=== PATIENT | female | born 1970 | race Caucasian/White ===

== ENCOUNTER 2023-12-16 18:09 | Inpatient (IN) | payer BC ==
--- NOTE | 2023-12-16 18:19 | ED ---
Wound/Laceration HPI - General Source: patient, RN notes reviewed Mode of arrival: ambulatory Limitations: no limitations <Saranya Fernández - Last Filed: 12/16/23 18:18> - General Source: RN notes reviewed, old records reviewed Mode of arrival: ambulatory Limitations: no limitations - History of Present Illness -: days(s) Extremity Location: Right: Foot Place: home Patient Tetanus UTD: Yes Context: accidental Associated Symptoms: none Treatments Prior to Arrival: bandage, other (Antibiotics) <Reji Dunbar - Last Filed: 12/16/23 23:16> - General Chief Complaint: Wound/Laceration Stated Complaint: R Foot Wound-sent by Dr Tiera Seen by Provider: 12/16/23 18:18 - History of Present Illness Initial Comments: Quick note: 53-year-old female presented to the ER with a chief complaint of right foot wound. She states been there for about 9 days. Was seen at [facility] and received IV antibiotics and discharged with oral. Was seen by electrical parts reconditioner today and sent to the ER for further evaluation. Patient denies any fevers but does endorse recent chills. Patient is diabetic and has history of t oe amputations. (Saranya Fernández) This is a 53-year-old female to the ER today. [facility] right foot wound. Patient was recently on antibiotics with both inpatient evaluation at [facility] as well as seen by her electrical parts reconditioner. Patient was sent to the ER by her electrical parts reconditioner for inpatient IV antibiotics (Reji Dunbar) - Related Data Allergies Allergy/AdvReac Type Severity Reaction Status Date / Time metformin Allergy Nausea & Verified 12/16/23 18:18 Vomiting & Diarrhea rubelsus Allergy Nausea & Uncoded 12/16/23 18:18 Vomiting & Diarrhea Review of Systems ROS Other: All systems not noted in ROS Statement are negative. <Saranya Fernández - Last Filed: 12/16/23 18:18> ROS Other: All systems not noted in ROS Statement are negative. <Reji Dunbar - Last Filed: 12/16/23 23:16> ROS Statement: Those systems with pertinent positive or pertinent negative responses have been documented in the HPI. Past Medical History Past Medical History: Diabetes Mellitus Additional Past Medical History / Comment(s): thyroid disorder-. eye issues due- DM. PCOS History of Any Multi-Drug Resistant Organisms: None Reported Additional Past Surgical History / Comment(s): lipoma- right abdomen. 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 Past Psychological History: No Psychological Hx Reported Smoking Status: Never smoker Past Alcohol Use History: Occasional Past Drug Use History: None Reported <Saranya Fernández - Last Filed: 12/16/23 18:18> General Exam Limitations: no limitations <Saranya Fernández - Last Filed: 12/16/23 18:18> General appearance: alert, in no apparent distress Head exam: Present: atraumatic, normocephalic, normal inspection Eye exam: Present: normal appearance, PERRL, EOMI. Absent: scleral icterus, conjunctival injection, periorbital swelling ENT exam: Present: normal exam, mucous membranes moist Neck exam: Present: normal inspection. Absent: tenderness, meningismus, lymph adenopathy Respiratory exam: Present: normal lung sounds bilaterally. Absent: respiratory distress, wheezes, rales, rhonchi, stridor Cardiovascular Exam: Present: regular rate, normal rhythm, normal heart sounds. Absent: systolic murmur, diastolic murmur, rubs, gallop, clicks GI/Abdominal exam: Present: soft, normal bowel sounds. Absent: distended, tenderness, guarding, rebound, rigid Extremities exam: Present: normal inspection, full ROM, normal capillary refill. Absent: tenderness, pedal edema, joint swelling, calf tenderness Back exam: Present: normal inspection Neurological exam: Present: alert, oriented X3, CN II-XII intact Psychiatric exam: Present: normal affect, normal mood Skin exam: Present: warm, dry, intact, normal color. Absent: rash <Reji Dunbar - Last Filed: 12/16/23 23:16> - General Exam Comments Initial Comments: Visual Physical Exam Vital signs reviewed General: Well-appearing, nontoxic, no acute distress. Head: Normocephalic, atraumatic Eyes: PERRLA, EOMI ENT: Airway patent Chest: Nonlabored breathing Skin: No visual rash, normal skin tone Neuro: Alert and oriented 3 Musculoskeletal: No gross abnormalities (Saranya Fernández) Course <Reji Dunbar - Last Filed: 12/16/23 23:16> Vital Signs 12/16/23 18:11 Temperature 98.1 F Pulse Rate 76 Respiratory 16 Rate Blood Pressure 179/79 O2 Sat by Pulse 99 Oximetry - Reevaluation(s) Reevaluation #1: 12/16/23 23:14 Records reviewed (Reji Dunbar) Reevaluation #2: 12/16/23 23:15 Patient has no change in symptoms (Reji Dunbar) Reevaluation #3: 12/16/23 23:15 Patient informed of results questions answered (Reji Dunbar) Reevaluation #4: Was pt. sent in by a medical professional or institution (, SAL, FINE ARTS TEACHER, urgent care, hospital, or senior care...) When possible be specific @ -no Did you speak to anyone other than the patient for history (EMS, parent, family, police, friend...)? What history was obtained from this source @ -no Did you review nursing and triage notes (agree or disagree)? Why? @ -agree Are old charts reviewed (outside hosp., previous admission, EMS record, old EKG, old radiological studies, urgent care reports/EKG's, senior care records)? Report findings @ -yes Differential Diagnosis (chest pain, altered mental status, abdominal pain women, abdominal pain men, vaginal bleeding, weakness, fever, dyspnea, syncope, headache, dizziness, GI bleed, back pain, seizure, CVA, palpatations, mental health, musculoskeletal)? @ -prior EKG interpreted by me (3pts min.). @ -yes X-rays interpreted by me (1pt min.). @ -yes negative for acute disease CT interpreted by me (1pt min.). @ -no U/S interpreted by me (1pt. min.). @ -no What testing was considered but not performed or refused? (CT, X-rays, U/S, labs)? Why? @ -none What meds were considered but not given or refused? Why? @ -none Did you discuss the management of the patient with other professionals (professionals i.e. SAL Anderson, FINE ARTS TEACHER, lab, RT, psych nurse, outreach and education social worker, coin teller, teacher, inspectors and regulatory officers, watch caser)? Give summary @ -no Was smoking cessation discussed for >3mins.? @ -no Was critical care preformed (if so, how long)? @ -no Were there social determinants of health that impacted care today? How? (Homelessness, low income, unemployed, alcoholism, drug addiction, transportation, low edu. Level, literacy, decrease access to med. care, m[facility], rehab)? @ -none Was there de-escalation of care discussed even if they declined (Discuss DNR or withdrawal of care, Hospice)? DNR status @ -no What co-morbidities impacted this encounter? (DM, HTN, Smoking, COPD, CAD, Cancer, CVA, ARF, Chemo, Hep., AIDS, mental health diagnosis, sleep apnea, morbid obesity)? @ -none Was patient admitted / discharged? Hospital course, mention meds given and route, prescriptions, significant lab abnormalities, going to OR and other pertinent info. @ - Undiagnosed new problem with uncertain prognosis? @ -no Drug Therapy requiring intensive monitoring for toxicity (Heparin, Nitro, Insulin, Cardizem)? @ -no Were any procedures done? @ -no Diagnosis/symptom? @ - Acute, or Chronic, or Acute on Chronic? @ -Acute Uncomplicated (without systemic symptoms) or Complicated (systemic symptoms)? @ -Complicated Side effects of treatment? @ -no Exacerbation, Progression, or Severe Exacerbation? @ -exacerbation Poses a threat to life or bodily function? How? (Chest pain, [place], [place], pneumonia, PE, COPD, DKA, ARF, appy, cholecystitis, CVA, Diverticulitis, Homicidal, Suicidal, threat to staff... and all critical care pts) @ -yes (Reji Dunbar) - Consultations Consultation #1: Spoke with sound who agrees to admit this patient (Rjei Dunbar) Medical Decision Making <Saranya Fernández - Last Filed: 12/16/23 18:18> - Lab Data Result diagrams: 12/16/23 20:40 12/16/23 20:40 - Radiology Data Radiology results: report reviewed (X-ray foot negative for acute disease), image reviewed <Reji Dunbar - Last Filed: 12/16/23 23:16> - Medical Decision Making I performed the quick note portion of this chart. Electronically signed by Saranya Fernández PA-C (Saranya Fernández) 53 female to ER for evaluation patient [facility] for evaluation of recheck evaluation of right lower extremity right foot wound. Patient has significant wound and cellulitis nonhealing wound to the right foot with significant history of peripheral neuropathy and patient be admitted for IV antibiotics and wound care (Reji Dunbar) - Lab Data Lab Results 12/16/23 12/16/23 12/16/23 Range/Units 20:40 20:40 20:40 WBC 9.4 (3.8-10.6) k/uL RBC 3.89 (3.80-5.40) m/uL Hgb 11.6 (11.4-16.0) gm/dL Hct 35.7 (34.0-46.0) % MCV 91.8 (80.0-100.0) fL MCH 29.8 (25.0-35.0) pg MCHC 32.5 (31.0-37.0) g/dL RDW 13.4 (11.5-15.5) % Plt Count 288 (150-450) k/uL MPV 8.0 Neutrophils % 72 % Lymphocytes % 18 % Monocytes % 4 % Eosinophils % 4 % Basophils % 1 % Neutrophils # 6.8 (1.3-7.7) k/uL Lymphocytes # 1.7 (1.0-4.8) k/uL Monocytes # 0.4 (0-1.0) k/uL Eosinophils # 0.4 (0-0.7) k/uL Basophils # 0.1 (0-0.2) k/uL Sodium 139 (137-145) mmol/L Potassium 4.1 (3.5-5.1) mmol/L Chloride 108 H (98-107) mmol/L Carbon Dioxide 26 (22-30) mmol/L Anion Gap 5 mmol/L BUN 12 (7-17) mg/dL Creatinine 0.56 (0.52-1.04) mg/dL Est GFR (CKD-EPI)AfAm >90 (>60 ml/min/1.73 sqM) Est GFR (CKD-EPI)NonAf >90 (>60 ml/min/1.73 sqM) Glucose 123 H (74-99) mg/dL Plasma Lactic Acid Jalen 1.4 (0.7-2.0) mmol/L Calcium 8.9 (8.4-10.2) mg/dL Total Bilirubin 0.3 (0.2-1.3) mg/dL AST 44 H (14-36) U/L ALT 87 H (4-34) U/L Alkaline Phosphatase 169 H (38-126) U/L Total Protein 6.6 (6.3-8.2) g/dL Albumin 3.5 (3.5-5.0) g/dL Disposition <Saranya Fernández - Last Filed: 12/16/23 18:18> Is patient prescribed a controlled substance at d/c from ED?: No Time of Disposition: 22:00 <Reji Dunbar - Last Filed: 12/16/23 23:16> Clinical Impression: Laceration, Cellulitis of right foot, Peripheral neuropathy, Failure of outpatient treatment Disposition: ADMITTED IP TO THIS HOSP Condition: Good Referrals: Jose Luis Sanches DO [Primary Care Provider] - 1-2 days
--- NOTE | 2023-12-16 18:39 | XR ---
Right foot. HISTORY: Foot wound for 9 days. COMPARISON: None TECHNIQUE: 3 views right foot were obtained. FINDINGS: There is no fracture, dislocation, interosseous, intra-articular or soft tissue abnormality. There is a small plantar calcaneal spur. IMPRESSION: No significant abnormality seen.
[2023-12-16 21:03] LABS: Basophils # (A) 0.1 k/uL (0-0.2); Basophils % (A) 1 %; Eosinophils # (A) 0.4 k/uL (0-0.7); Eosinophils % (A) 4 %; HCT 35.7 % (34.0-46.0); HGB 11.6 gm/dL (11.4-16.0); Lymphocytes # (A) 1.7 k/uL (1.0-4.8); Lymphocytes % (A) 18 %; MCH 29.8 pg (25.0-35.0); MCHC 32.5 g/dL (31.0-37.0); MCV 91.8 fL (80.0-100.0); Monocytes # (A) 0.4 k/uL (0-1.0); Monocytes % (A) 4 %; Neutrophils # (A) 6.8 k/uL (1.3-7.7); Neutrophils % (A) 72 %; Platelet Count 288 k/uL (150-450); RBC 3.89 m/uL (3.80-5.40); RDW 13.4 % (11.5-15.5); WBC 9.4 k/uL (3.8-10.6)
[2023-12-16 21:14] LABS: ALT 87 U/L (4-34); AST 44 U/L (14-36); African American GFR (CKD) >90 (>60 ml/min/1.73 sqM); Albumin 3.5 g/dL (3.5-5.0); Alkaline Phosphatase 169 U/L (38-126); Anion Gap 5 mmol/L; Blood Urea Nitrogen 12 mg/dL (7-17); Calcium 8.9 mg/dL (8.4-10.2); Carbon Dioxide 26 mmol/L (22-30); Chloride 108 mmol/L (98-107); Glucose 123 mg/dL (74-99); Non-African American GFR(CKD) >90 (>60 ml/min/1.73 sqM); Potassium 4.1 mmol/L (3.5-5.1); Sodium 139 mmol/L (137-145); Total Bilirubin 0.3 mg/dL (0.2-1.3); Total Protein 6.6 g/dL (6.3-8.2)
[2023-12-16] MEDS ORDERED: ONDANSETRON 4 MG/2 ML VIAL IVP PRN (22:09)
[2023-12-16] MEDS ORDERED: MORPHINE SULFATE 4 MG/ML SYRINGE IV PRN (22:09)
[2023-12-16] MEDS ORDERED: NALOXONE 0.4 MG/ML 1 ML VIAL IV PRN (22:09)
[2023-12-16] MEDS ORDERED: VANCOMYCIN IV PER PHARMACY 1 EACH MISC MISCELLANE PRN (22:09)
[2023-12-17 00:05] LABS: C Reactive Protein 6.3 mg/dL (<1.0)
[2023-12-17] MEDS: SODIUM CHLORIDE 0.9% 1,000 ML IV SCH (00:22)
[2023-12-17] MEDS: VANCOMYCIN 2,000 MG in SODIUM CHLORIDE 0.9% 500 ML 500 ML IVPB ONE (01:33)
--- NOTE | 2023-12-17 04:05 | P.HPIM ---
History of Present Illness H&P Date: 12/17/23 Patient is a 53-year-old female with a PMH of type II DM who presents to the emergency room for right foot laceration with pain and swelling. Patient reports that she suffered a right plantar surface medial aspect laceration on some bricks roughly 9 days ago. She saw her flute grinder 3 days later at which time there were no signs of infection. Over the following 2 days, she developed redness and pain in the region and was subsequently seen again at her flute grinder on 12/11 who subsequently started her on Augmentin. Patient reports compliance with the medication but notes worsening symptoms. She also reports intermittent fevers at home. Denies experiencing chest discomfort, shortness of breath, nausea, vomiting, abdominal pain, diarrhea. Right foot x-ray in the emergency room was unremarkable with laboratory evaluation showing WBC count 9.4, hemoglobin 11.6, platelet count 288, sodium 1 39, potassium 4.1, chloride 108, BUN 12, creatinine 0.56, glucose 123, lactic acid 1.4, AST 44, ALT 87, CRP 6.3. ED documentation reviewed and case discussed with ED provider. Review of systems: Pertinent positives and negatives as discussed in HPI, a complete review of systems was performed and all other systems are negative. Physical examination: Vital signs reviewed General: non toxic, no distress, appears at stated age, morbidly obese Derm: Right foot plantar surface medial aspect 4 to 5 cm laceration noted with surrounding erythema with tenderness extending towards midfoot Head: atraumatic, normocephalic, symmetric Eyes: EOMI, no lid lag, anicteric sclera, pupils equal round reactive to light ENT: Nose and ears atraumatic Neck: No cervical lymphadenopathy, trachea midline, supple Mouth: no lip lesion, mucus membranes moist Cardiovascular: S1S2 reg, no murmur, positive dorsalis pedis pulse bilateral, no edema Lungs: CTA bilateral, no rhonchi, no rales, no accessory muscle use Abdominal: soft, nontender to palpation, no guarding Ext: muscle strength 5 out of 5 in all 4 extremities grossly, no gross muscle atrophy, no contractures, Neuro: CN II-XI grossly intact, no gross focal neuro deficits Psych: Alert, oriented, appropriate affect Assessment: Right foot laceration and cellulitis in a diabetic Transaminitis, suspect due to ongoing infection Type II DM Imaging: Right foot x-ray in the emergency room was unremarkable Data Review: laboratory evaluation showed WBC count 9.4, hemoglobin 11.6, platelet count 288, sodium 139, potassium 4.1, chloride 108, BUN 12, creatinine 0.56, glucose 123, lactic acid 1.4, AST 44, ALT 87, CRP 6.3. Plan: Continue with IV antibiotics vancomycin and ceftriaxone at this time Follow blood cultures Continue IV fluids with normal saline 75 cc/h Insulin sliding scale lumbar glucose monitoring Monitor LFTs Affected area marked DVT prophylaxis: Lovenox subcu The patient is admitted with an anticipated greater than 2 midnight stay for evaluation of R foot cellulitis CODE STATUS: Full Code Discussed with: Patient Anticipated discharge place: Home Past Medical History Past Medical History: Diabetes Mellitus Additional Past Medical History / Comment(s): thyroid disorder-. eye issues due- DM. PCOS History of Any Multi-Drug Resistant Organisms: None Reported Additional Past Surgical History / Comment(s): lipoma- right abdomen. 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 Past Psychological History: No Psychological Hx Reported Smoking Status: Never smoker Past Alcohol Use History: Occasional Past Drug Use History: None Reported Medications and Allergies Allergies Allergy/AdvReac Type Severity Reaction Status Date / Time metformin Allergy Nausea & Verified 12/16/23 18:18 Vomiting & Diarrhea rubelsus Allergy Nausea & Uncoded 12/16/23 18:18 Vomiting & Diarrhea Physical Exam Vitals: Vital Signs Temp Pulse Resp BP Pulse Ox 12/17/23 03:00 73 18 152/75 97 12/17/23 01:00 84 18 165/73 98 12/17/23 00:25 78 16 172/68 99 12/16/23 18:11 98.1 F 76 16 179/79 99 Intake and Output 12/16/23 12/16/23 12/17/23 14:59 22:59 06:59 Other: Weight 131.088 kg Results CBC & Chem 7: 12/16/23 20:40 12/16/23 20:40 Labs: Abnormal Lab Results - Last 24 Hours (Table) 12/16/23 12/16/23 Range/Units 20:40 20:40 Chloride 108 H (98-107) mmol/L Glucose 123 H (74-99) mg/dL AST 44 H (14-36) U/L ALT 87 H (4-34) U/L Alkaline Phosphatase 169 H (38-126) U/L C-Reactive Protein 6.3 H (<1.0) mg/dL
[2023-12-17 06:44] LABS: Basophils # (A) 0.1 k/uL (0-0.2); Basophils % (A) 1 %; Eosinophils # (A) 0.4 k/uL (0-0.7); Eosinophils % (A) 5 %; HCT 32.8 % (34.0-46.0); HGB 10.4 gm/dL (11.4-16.0); Lymphocytes # (A) 1.6 k/uL (1.0-4.8); Lymphocytes % (A) 21 %; MCH 29.2 pg (25.0-35.0); MCHC 31.8 g/dL (31.0-37.0); Mean Platelet Volume 7.8; Monocytes # (A) 0.3 k/uL (0-1.0); Monocytes % (A) 5 %; Neutrophils % (A) 67 %; Platelet Count 245 k/uL (150-450); RBC 3.56 m/uL (3.80-5.40); RDW 13.4 % (11.5-15.5); WBC 7.4 k/uL (3.8-10.6)
[2023-12-17 07:05] LABS: ALT 74 U/L (4-34); AST 40 U/L (14-36); African American GFR (CKD) >90 (>60 ml/min/1.73 sqM); Albumin 2.8 g/dL (3.5-5.0); Alkaline Phosphatase 147 U/L (38-126); Anion Gap 3 mmol/L; Blood Urea Nitrogen 10 mg/dL (7-17); Calcium 8.1 mg/dL (8.4-10.2); Carbon Dioxide 24 mmol/L (22-30); Chloride 111 mmol/L (98-107); Glucose 160 mg/dL (74-99); Magnesium 1.9 mg/dL (1.6-2.3); Non-African American GFR(CKD) >90 (>60 ml/min/1.73 sqM); Phosphorus 3.2 mg/dL (2.5-4.5); Potassium 3.7 mmol/L (3.5-5.1); Sodium 138 mmol/L (137-145); Total Bilirubin 0.2 mg/dL (0.2-1.3); Total Protein 5.6 g/dL (6.3-8.2)
[2023-12-17 07:53] LABS: Glucose,Whole Blood 152 mg/dL (70-110)
[2023-12-17] MEDS: INSULIN ASPART (NovoLOG) 100 UNIT/ML VIAL SQ SCH (07:57)
[2023-12-17] MEDS: ENOXAPARIN 40 MG/0.4 ML SYRINGE SQ SCH (08:01)
[2023-12-17] MEDS: VANCOMYCIN 2,000 MG in SODIUM CHLORIDE 0.9% 500 ML 500 ML IVPB SCH ×2 (11:36→20:28)
[2023-12-17 11:58] LABS: Glucose,Whole Blood 149 mg/dL (70-110)
[2023-12-17] MEDS: GABAPENTIN 300 MG CAP PO SCH ×2 (14:38→20:12)
[2023-12-17 16:29] LABS: Glucose,Whole Blood 159 mg/dL (70-110)
[2023-12-17 20:51] LABS: Glucose,Whole Blood 129 mg/dL (70-110)
--- NOTE | 2023-12-17 22:02 | P.CONS ---
History of Present Illness - Reason for Consult Consult date: 12/17/23 Cellulitis Requesting physician: Jonathan Smith - Chief Complaint Right foot swelling and redness x few days - History of Present Illness Patient is a 53-year-old female past medical history significant for diabetes mellitus presenting to the hospital for evaluation of increasing swelling and redness to the right foot area apparently the patient did have in jury to the right foot from the tile with the patient did receive 2 laceration on the lateral aspect of the right foot about 10 days before presentation to the hospital patient mention few days after the injury she noticed to have increasing swelling and redness to the right foot for the patient has been evaluated by primary care physician has been treated with Keflex without any improvement noticed to have worsening swelling and redness patient did have diabetic neuropathy denies significant pain has been complaining of mostly pressure to the right foot area with worsening swelling and redness patient initially evaluated at [facility] and subsequently has been transferred to [facility] for further evaluation and treatment on presentation to the hospital patient was afebrile and no fever have been recorded subsequently patient was not tachycardic hypotensive or hypoxic and no need for supplemental oxygen white count of 7.4 creatinine 0.54 liver enzymes mildly elevated patient did have x-ray of the foot no significant abnormality seen patient was started on ceftriaxone and vancomycin infectious disease was consulted for further management of antibiotic therapy Review of Systems Positive point and negatives has been mentioned in the HPI, complete review of systems was performed and all other systems are negative Past Medical History Past Medical History: Diabetes Mellitus Additional Past Medical History / Comment(s): thyroid disorder-. eye issues due- DM. PCOS History of Any Multi-Drug Resistant Organisms: None Reported Additional Past Surgical History / Comment(s): lipoma- right abdomen. 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 Past Psychological History: No Psychological Hx Reported Smoking Status: Never smoker Past Alcohol Use History: Occasional Past Drug Use History: None Reported Medications and Allergies Home Medications Medication Instructions Recorded Confirmed Type Gabapentin [Neurontin] 300 mg PO BID@0900,1500 12/17/23 12/17/23 History Gabapentin [Neurontin] 600 mg PO HS 12/17/23 12/17/23 History Insulin Glargine-Yfgn [Semglee 30 unit SQ HS 12/17/23 12/17/23 History (Yfgn) Pen] Levothyroxine Sodium [Synthroid] 200 mcg PO DAILY 12/17/23 12/17/23 History Pioglitazone [Actos] 15 mg PO DAILY 12/17/23 12/17/23 History Tirzepatide [Mounjaro] 12.5 mg SQ WE@2100 12/17/23 12/17/23 History Amoxic-Pot Clav 875-125Mg 1 tab PO BID 10 Days #20 tab 12/21/23 Rx [Augmentin 875-125] Doxycycline [Vibramycin] 100 mg PO BID 10 Days #20 capsule 12/21/23 Rx L.acidoph,Paracasei, B.lactis 1 each PO DAILY #20 capsule 12/21/23 Rx [Probiotic] Allergies Allergy/AdvReac Type Severity Reaction Status Date / Time metformin Allergy Nausea & Verified 12/17/23 06:59 Vomiting & Diarrhea semaglutide [From Rybelsus] Allergy Nausea & Verified 12/17/23 06:59 Vomiting & Diarrhea Physical Exam Vitals: Vital Signs Temp Pulse Resp BP Pulse Ox 12/17/23 11:07 97.6 F 71 18 136/60 98 12/17/23 07:37 97.5 F L 77 18 159/84 99 12/17/23 06:00 153/71 97 12/17/23 05:00 75 18 137/54 91 L 12/17/23 04:00 75 16 152/75 87 L 12/17/23 03:00 73 18 152/75 97 12/17/23 01:00 84 18 165/73 98 12/17/23 00:25 78 16 172/68 99 12/16/23 18:11 98.1 F 76 16 179/79 99 Intake and Output 12/16/23 12/17/23 12/17/23 22:59 06:59 14:59 Other: Weight 131.088 kg GENERAL DESCRIPTION: Middle-aged female lying in bed, no distress. No tachypnea or accessory muscle of respiration use. HEENT: Shows Pallor , no scleral icterus. Oral mucous membrane is dry. No pharyngeal erythema or thrush NECK: Trachea central, no thyromegaly. LUNGS: Unlabored breathing. Clear to auscultation anteriorly. No wheeze or crackle. HEART: S1, S2, regular rate and rhythm. No loud murmur ABDOMEN: Soft, no tenderness , guarding or rigidity, no organomegaly EXTREMITIES: Right foot did have diffuse swelling redness no fluctuation induration or any drainage was noticed SKIN: No rash, no masses palpable. NEUROLOGICAL: The patient is awake, alert, oriented x3, mood and affect normal. Results CBC & Chem 7: 12/20/23 07:12 12/21/23 05:34 Labs: Abnormal Lab Results - Last 24 Hours (Table) 12/16/23 12/16/23 12/17/23 Range/Units 20:40 20:40 06:32 RBC 3.56 L (3.80-5.40) m/uL Hgb 10.4 L (11.4-16.0) gm/dL Hct 32.8 L (34.0-46.0) % Chloride 108 H (98-107) mmol/L Glucose 123 H (74-99) mg/dL POC Glucose (mg/dL) (70-110) mg/dL Calcium (8.4-10.2) mg/dL AST 44 H (14-36) U/L ALT 87 H (4-34) U/L Alkaline Phosphatase 169 H (38-126) U/L C-Reactive Protein 6.3 H (<1.0) mg/dL Total Protein (6.3-8.2) g/dL Albumin (3.5-5.0) g/dL 12/17/23 12/17/23 12/17/23 Range/Units 06:32 07:51 11:57 RBC (3.80-5.40) m/uL Hgb (11.4-16.0) gm/dL Hct (34.0-46.0) % Chloride 111 H (98-107) mmol/L Glucose 160 H (74-99) mg/dL POC Glucose (mg/dL) 152 H 149 H (70-110) mg/dL Calcium 8.1 L (8.4-10.2) mg/dL AST 40 H (14-36) U/L ALT 74 H (4-34) U/L Alkaline Phosphatase 147 H (38-126) U/L C-Reactive Protein (<1.0) mg/dL Total Protein 5.6 L (6.3-8.2) g/dL Albumin 2.8 L (3.5-5.0) g/dL Assessment and Plan (1) Cellulitis of right foot Status: Acute Code(s): L03.115 - CELLULITIS OF RIGHT LOWER LIMB SNOMED Code(s): 91761263928087803 (2) Diabetic infection of right foot Status: Acute Code(s): E11.628 - TYPE 2 DIABETES MELLITUS WITH OTHER SKIN COMPLICATIONS; L08.9 - LOCAL INFECTION OF THE SKIN AND SUBCUTANEOUS TISSUE, UNSP SNOMED Code(s): 69367527 (3) Failure of outpatient treatment Status: Acute Code(s): Z78.9 - OTHER SPECIFIED HEALTH STATUS SNOMED Code(s): 221536785 Plan: 1patient presented hospital with worsening swelling and redness to the right foot in this patient who did have a injury to the right foot about 10 days before presentation the hospital developing small laceration with secondary cellulitis failing outpatient oral Keflex therapy 2-area of the redness has been marked 3-vancomycin pharmacy to dose target trough of 15 while watching kidney function and Vanco trough closely and Rocephin while waiting for the culture to finalize We will follow on clinical condition and cultures to further adjust medication if needed Thank you for this consultation we will follow the patient along with you Dictation was produced using [employer] dictation software. please excuse any grammatical, word or spelling errors. Time with Patient: Greater than 30
[2023-12-18 03:56] LABS: African American GFR (CKD) >90 (>60 ml/min/1.73 sqM); Non-African American GFR(CKD) >90 (>60 ml/min/1.73 sqM)
[2023-12-18 05:56] LABS: Glucose,Whole Blood 152 mg/dL (70-110)
[2023-12-18] MEDS: ACETAMINOPHEN TAB 325 MG TAB PO PRN (06:06)
[2023-12-18] MEDS: LEVOTHYROXINE 100 MCG TAB PO SCH (06:06)
--- NOTE | 2023-12-18 10:15 | P.PN ---
Subjective Progress Note Date: 12/18/23 53-year-old female with a PMH of type II DM who presents to the emergency room for right foot laceration with pain and swelling. Patient reports that she suffered a right plantar surface medial aspect laceration on some bricks roughly 9 days ago. She saw her bottom brusher 3 days later at which time there were no signs of infection. Over the following 2 days, she developed redness and pain in the region and was subsequently seen again at her bottom brusher on 12/11 who subsequently started her on Augmentin. Patient reports compliance with the medication but notes worsening symptoms. She also reports intermittent fevers at home. Right foot x-ray in the emergency room was unremarkable with laboratory ev aluation showing WBC count 9.4, hemoglobin 11.6, platelet count 288, sodium 139, potassium 4.1, chloride 108, BUN 12, creatinine 0.56, glucose 123, lactic acid 1.4, AST 44, ALT 87, CRP 6.3. Patient was started on Rocephin and Vancomycin and admitted for further management. ID consulted. 12/17 Patient was seen and examined. Patient reports erythema of the R foot unchanged from admission. Renal function Cr 0.63, GFR > 90. Maintained on Vancomycin dosed per pharmacy (D2) and Rocephin 2g IV QD (D1). Blood culture negative at 24H. General: non toxic, no distress, appears at stated age Derm: Right foot dressing c/d/i Head: atraumatic, normocephalic, symmetric Eyes: EOMI, no lid lag, anicteric sclera Mouth: no lip lesion, mucus membranes moist Cardiovascular: S1S2 reg, no murmur Lungs: CTA bilateral, no rhonchi, no rales , no accessory muscle use Ext: no gross muscle atrophy, no edema, no contractures Neuro: no focal neuro deficits Psych: Alert, oriented, appropriate affect Right foot laceration and cellulitis in a diabetic: Vancomycin dosed per pharmacy to maintain trough of 15. Rocephin 2g IV QD. NS at 75 cc/hr. BCx negative so far. She is pending clinical improvement. ID on board. Normocytic anemia: Likely dilution. No signs of active bleeding. Continue to monitor. Transaminitis: Unknown etiology. Trending down. Need outpatient workup. Type II DM: POC glucose 129-159 over the past 24H. ISS. Accuchecks ACHS. Hypoglycemic precautions. Hypothyroidism: Synthroid 200 mcg PO QD. CODE STATUS: FULL CODE DVT Prophylaxis: Lovenox SQ GI Prophylaxis: Designated medical POA if patient is not able to make medical decisions for themselves: I have reviewed the following application packaging consultant notes: ID note. I have reviewed the results of the following tests: Renal function I have ordered the following tests: Renal function tomorrow while on Vancomycin. I have discussed the care of this patient with the following independent historian: ERIK I have independently interpreted the following test below: I have discussed the management of this patient with the following physician: This patient has a high risk of morbidity due to the following reasons: This patient meets a high level of care for the following reasons: Patient requires vancomycin which requires intensive monitoring for renal toxicity. Objective - Vital Signs Vital signs: Vital Signs Temp 97.5 F L 12/18/23 02:00 Pulse 70 12/18/23 02:00 Resp 17 12/18/23 02:00 BP 151/80 12/18/23 02:00 Pulse Ox 98 12/18/23 02:00 FiO2 Intake & Output 12/17/23 12/17/23 12/18/23 06:59 18:59 06:59 Weight 131.088 kg Other: Voiding Method Toilet Toilet # Voids 1 - Labs CBC & Chem 7: 12/17/23 06:32 12/18/23 03:19 Labs: Abnormal Lab Results - Last 24 Hours (Table) 12/17/23 12/17/23 12/17/23 Range/Units 06:32 06:32 07:51 RBC 3.56 L (3.80-5.40) m/uL Hgb 10.4 L (11.4-16.0) gm/dL Hct 32.8 L (34.0-46.0) % Chloride 111 H (98-107) mmol/L Glucose 160 H (74-99) mg/dL POC Glucose (mg/dL) 152 H (70-110) mg/dL Calcium 8.1 L (8.4-10.2) mg/dL AST 40 H (14-36) U/L ALT 74 H (4-34) U/L Alkaline Phosphatase 147 H (38-126) U/L Total Protein 5.6 L (6.3-8.2) g/dL Albumin 2.8 L (3.5-5.0) g/dL 12/17/23 12/17/23 12/17/23 Range/Units 11:57 16:28 20:49 RBC (3.80-5.40) m/uL Hgb (11.4-16.0) gm/dL Hct (34.0-46.0) % Chloride (98-107) mmol/L Glucose (74-99) mg/dL POC Glucose (mg/dL) 149 H 159 H 129 H (70-110) mg/dL Calcium (8.4-10.2) mg/dL AST (14-36) U/L ALT (4-34) U/L Alkaline Phosphatase (38-126) U/L Total Protein (6.3-8.2) g/dL Albumin (3.5-5.0) g/dL Microbiology - Last 24 Hours (Table) 12/17/23 00:02 Blood Culture - Preliminary Blood 12/16/23 20:40 Blood Culture - Preliminary Blood
[2023-12-18] MEDS: VANCOMYCIN TROUGH DUE 1 EACH MISC MISCELLANE ONE (11:17)
[2023-12-18 11:59] LABS: Glucose,Whole Blood 138 mg/dL (70-110)
[2023-12-18 17:12] LABS: Glucose,Whole Blood 109 mg/dL (70-110)
[2023-12-18 20:09] LABS: Glucose,Whole Blood 186 mg/dL (70-110)
[2023-12-18] MEDS: VANCOMYCIN 2,000 MG in SODIUM CHLORIDE 0.9% 500 ML 500 ML IVPB SCH (23:37)
[2023-12-19 07:12] LABS: Glucose,Whole Blood 134 mg/dL (70-110)
[2023-12-19 12:16] LABS: Glucose,Whole Blood 198 mg/dL (70-110)
[2023-12-19 12:32] LABS: HCT 33.2 % (34.0-46.0); MCH 30.5 pg (25.0-35.0); MCHC 33.2 g/dL (31.0-37.0); Mean Platelet Volume 8.3; Platelet Count 276 k/uL (150-450); RBC 3.61 m/uL (3.80-5.40); RDW 13.5 % (11.5-15.5); WBC 7.5 k/uL (3.8-10.6)
[2023-12-19 12:34] LABS: African American GFR (CKD) >90 (>60 ml/min/1.73 sqM); Anion Gap 5 mmol/L; Blood Urea Nitrogen 10 mg/dL (7-17); Calcium 8.7 mg/dL (8.4-10.2); Carbon Dioxide 26 mmol/L (22-30); Chloride 107 mmol/L (98-107); Glucose 208 mg/dL (74-99); Magnesium 1.9 mg/dL (1.6-2.3); Non-African American GFR(CKD) >90 (>60 ml/min/1.73 sqM); Potassium 4.3 mmol/L (3.5-5.1); Sodium 138 mmol/L (137-145)
--- NOTE | 2023-12-19 13:34 | P.PN ---
Subjective Progress Note Date: 12/18/23 Principal diagnosis: Reason for follow-up is right foot cellulitis Patient is a 53-year-old female past medical history significant for diabetes mellitus presenting to the hospital for evaluation of increasing swelling and redness to the right foot area apparently the patient did have injury to the right foot from the tile with the patient did receive 2 laceration on the lateral aspect of the right foot, failing outpatient oral Keflex therapy. On today's evaluation that is 12/18/2023, patient has been afebrile, patient is breathing comfortably and is currently on room air, patient denies having any significant cough no chest pain shortness of breath, patient denies nausea vomiting or diarrhea and no abdominal pain, denies pain to the right foot area redness slightly decreased. No CBC was done today, creatinine 0.63 Objective - Vital Signs Vital signs: Vital Signs Temp 97.8 F 12/18/23 13:34 Pulse 65 12/18/23 13:34 Resp 18 12/18/23 13:34 BP 153/85 12/18/23 13:34 Pulse Ox 99 12/18/23 13:34 FiO2 Intake & Output 12/17/23 12/18/23 12/18/23 18:59 06:59 18:59 Intake Total 500 Balance 500 Weight 131.088 kg Intake: Oral 500 Other: Voiding Method Toilet Toilet Toilet # Voids 1 - Exam GENERAL DESCRIPTION: Middle-aged female lying in bed in no distress RESPIRATORY SYSTEM: Unlabored breathing , decreased breath sounds at bases HEART: S1 S2 regular rate and rhythm , ABDOMEN: Soft , no tenderness EXTREMITIES: Right foot erythema slightly decreased - Labs CBC & Chem 7: 12/19/23 11:45 12/19/23 11:45 Labs: Abnormal Lab Results - Last 24 Hours (Table) 12/17/23 12/18/23 12/18/23 Range/Units 20:49 05:55 11:59 POC Glucose (mg/dL) 129 H 152 H 138 H (70-110) mg/dL Microbiology - Last 24 Hours (Table) 12/17/23 00:02 Blood Culture - Preliminary Blood 12/16/23 20:40 Blood Culture - Preliminary Blood Assessment and Plan (1) Diabetic infection of right foot Current Visit: Yes Status: Acute Code(s): E11.628 - TYPE 2 DIABETES MELLITUS WITH OTHER SKIN COMPLICATIONS; L08.9 - LOCAL INFECTION OF THE SKIN AND SUBCUTANEOUS TISSUE, UNSP SNOMED Code(s): 05599435 (2) Cellulitis of right foot Current Visit: Yes Status: Acute Code(s): L03.115 - CELLULITIS OF RIGHT LOWER LIMB SNOMED Code(s): 88762668525533326 (3) Failure of outpatient treatment Current Visit: Yes Status: Acute Code(s): Z78.9 - OTHER SPECIFIED HEALTH STATUS SNOMED Code(s): 500822272 Plan: 1patient presented hospital with worsening swelling and redness to the right foot in this patient who did have a injury to the right foot about 10 days before presentation the hospital developing small laceration with secondary cellulitis failing outpatient oral Keflex therapy 2-area of the redness has slightly decreased in intensity 3-patient to continue with vancomycin pharmacy to dose target trough of 15 and Rocephin while waiting for the culture to finalize and monitor clinical course closely Dictation was produced using [employer] dictation software. please excuse any grammatical, word or spelling errors. Time with Patient: Less than 30
--- NOTE | 2023-12-19 13:36 | P.PN ---
Subjective Progress Note Date: 12/19/23 Principal diagnosis: Reason for follow-up is right foot cellulitis Patient is a 53-year-old female past medical history significant for diabetes mellitus presenting to the hospital for evaluation of increasing swelling and redness to the right foot area apparently the patient did have injury to the right foot from the tile with the patient did receive 2 laceration on the lateral aspect of the right foot, failing outpatient oral Keflex therapy. On today's evaluation that is 12/19/2023,the patient denies any fever or any chills, patient is breathing comfortably on room air, the patient denies chest pain shortness of breath and no significant cough, patient denies abdominal pain, no nausea vomiting or diarrhea. Patient denies any pain to the right foot area because of underlying neuropathy redness is slightly decreased there is no drainage. The patient white count is 7.5, creatinine 0.52 blood culture has been negative Objective - Vital Signs Vital signs: Vital Signs Temp 97.8 F 12/19/23 12:15 Pulse 69 12/19/23 12:15 Resp 16 12/19/23 12:15 BP 171/90 12/19/23 12:15 Pulse Ox 98 12/19/23 12:15 FiO2 Intake & Output 12/18/23 12/19/23 12/19/23 18:59 06:59 18:59 Intake Total 500 Balance 500 Intake: Oral 500 Other: Voiding Method Toilet Toilet Toilet # Voids 1 - Exam GENERAL DESCRIPTION: Middle-aged female lying in bed in no distress RESPIRATORY SYSTEM: Unlabored breathing , decreased breath sounds at bases HEART: S1 S2 regular rate and rhythm , ABDOMEN: Soft , no tenderness EXTREMITIES: Right foot erythema slightly decreased - Labs CBC & Chem 7: 12/19/23 11:45 12/19/23 11:45 Labs: Abnormal Lab Results - Last 24 Hours (Table) 12/18/23 12/19/23 12/19/23 Range/Units 20:08 07:11 11:45 RBC 3.61 L (3.80-5.40) m/uL Hgb 11.0 L (11.4-16.0) gm/dL Hct 33.2 L (34.0-46.0) % Glucose (74-99) mg/dL POC Glucose (mg/dL) 186 H 134 H (70-110) mg/dL 12/19/23 12/19/23 Range/Units 11:45 12:15 RBC (3.80-5.40) m/uL Hgb (11.4-16.0) gm/dL Hct (34.0-46.0) % Glucose 208 H (74-99) mg/dL POC Glucose (mg/dL) 198 H (70-110) mg/dL Microbiology - Last 24 Hours (Table) 12/17/23 00:02 Blood Culture - Preliminary Blood 12/16/23 20:40 Blood Culture - Preliminary Blood Assessment and Plan (1) Diabetic infection of right foot Current Visit: Yes Status: Acute Code(s): E11.628 - TYPE 2 DIABETES MELLITUS WITH OTHER SKIN COMPLICATIONS; L08.9 - LOCAL INFECTION OF THE SKIN AND SUBCUTANEOUS TISSUE, UNSP SNOMED Code(s): 96340607 (2) Cellulitis of right foot Current Visit: Yes Status: Acute Code(s): L03.115 - CELLULITIS OF RIGHT LOWER LIMB SNOMED Code(s): 29438730624231400 (3) Failure of outpatient treatment Current Visit: Yes Status: Acute Code(s): Z78.9 - OTHER SPECIFIED HEALTH STATUS SNOMED Code(s): 899964641 Plan: 1patient presented hospital with worsening swelling and redness to the right foot in this patient who did have a injury to the right foot about 10 days before presentation the hospital developing small laceration with secondary cellulitis failing outpatient oral Keflex therapy 2-patient seem to have shown very slow and minimal improvement as far as the right foot cellulitis is concerned I will continue the patient on vancomycin however discontinue Rocephin and start the patient on Unasyn 3 g every 6 hours and will reevaluate patient tomorrow if improvement will consider oral antibiotics Dictation was produced using [employer] dictation software. please excuse any grammatical, word or spelling errors. Time with Patient: Less than 30
[2023-12-19 14:37] LABS: C Reactive Protein 3.9 mg/dL (<1.0)
[2023-12-19] MEDS: AMPICILLIN-SULBACTAM 3 GM in SODIUM CHLORIDE 0.9% 100 ML IVPB SCH ×2 (15:36→21:25)
[2023-12-19 17:22] LABS: Glucose,Whole Blood 157 mg/dL (70-110)
--- NOTE | 2023-12-19 18:22 | P.PN ---
Subjective Progress Note Date: 12/19/23 Hospital course: Patient is a very pleasant 53-year-old female with a past medical history of insulin-dependent diabetes mellitus type 2 with significant peripheral neuropathy in bilateral lower extremities and previous toe amputation. She presented to the emergency department on 12/17/2023 secondary to concerns of diabetic wound infection failing outpatient antibiotics. Upon arrival to the emergency department patient underwent evaluation. Vital signs upon arrival show blood pressure 179/79, heart rate 76, respiratory rate 16, temp 98.1 F, and SpO2 of 99% on room air. X-ray right foot negative for acute process. Labs completed and reviewed. CBC was unremarkable with WBC count of 9.4. BMP showing elevated chloride of 108 and glucose of 123. Lactic acid was 1.4. Liver profile showing transaminitis with AST of 44, ALT of 87, and alkaline phosphatase of 169. CRP was 6.3. Patient was started on IV antibiotics and admitted under our services for right lower extremity cellulitis. Consult placed to infectious disease. Physical exam: Vital signs reviewed and stable. General: Nontoxic, no distress and appears stated age. Derm: Skin warm and dry, normal coloration for ethnicity.Patient with puncture/laceration to right lateral plantar region of foot surrounded by moderate edema and erythema extending upwards onto dorsal surface of right foot into ankle. Head: Atraumatic, normocephalic and symmetric. Eyes: EOMs intact, no lid lag, and anicteric sclera Mouth: no lip lesions, mucus membranes moist Cardiovascular: regular rate and rhythm with normal S1S2, no murmur, positive posterior tibial pulses bilaterally, and cap refill < 2 seconds. Lungs: Respirations even, regular, and unlabored on room air. Lungs CTA bilaterally, no rhonchi, no rales, no wheezing, and no accessory muscle usage. Abdominal: soft, nontender to palpation, no guarding, no appreciable organomegaly Ext: No gross muscle atrophy, no edema, no contractures. Movement intact. P atient with decreased sensation in bilateral feet. Neuro: Speech clear, face symmetrical and CN II-XII grossly intact with no noted focal neuro deficits Psych: Alert and oriented to person, place, time, and situation. Appropriate and pleasant affect. Assessment and Plan of Care: Diabetic foot infection with laceration and surrounding cellulitis Insulin-dependent diabetes mellitus with hyperglycemia Transaminitis, suspect reactive secondary to acute infection Diabetic neuropathy bilateral lower extremities -Continue IV antibiotics with vancomycin and Unasyn. -Close monitoring of vancomycin trough and renal function to monitor for any signs of vancomycin associated renal toxicity. -Infectious disease consulted, reviewed documentation in chart -Obtain hemoglobin A1c. -Continue Levemir 30 units nightly and patient placed on glycemic protocol with NovoLog sliding scale. -Continue Neurontin 300 mg twice daily and 600 mg nightly. Hypothyroidism Continue levothyroxine 200 mcg daily. Morbid obesity with BMI of 45.3 kg/m Recommend structured outpatient weight management program. Data reviewed: Morning labs reviewed. CBC showing stable normocytic anemia with hemoglobin of 11.0. BMP remains unremarkable with renal function showing BUN of 10, creatinine 0.52, GFR greater than 90. Blood glucose was elevated at 208 this morning. Magnesium normal findings at 1.9. Repeat CRP showing improvement from previous 6.3 down to 3.9 this morning. Vancomycin trough therapeutic at 28.4. Vital signs reviewed. Blood pressure 145/83, heart rate 69, respiratory rate 16, temp 97.9 F, and SpO2 of 98% on room air. CODE STATUS: Full code DVT prophylaxis: Lovenox Anticipated discharge date: Pending clinical course Anticipated discharge place: Pending clinical course Patient was seen independently by Nurse Pracitioner. This document was prepared using [employer] dictation software. Please allow for errors in personal finance instructor, while rare they do occur. Ti Rodríguez NP rendered care for this patient independently, reviewed the findings and plan as documented in the note above. I did not physically speak with or examine the patient on this date. Objective - Vital Signs Vital signs: Vital Signs Temp 97.9 F 12/19/23 07:11 Pulse 69 12/19/23 07:11 Resp 16 12/19/23 07:11 BP 145/83 12/19/23 07:11 Pulse Ox 98 12/19/23 07:11 FiO2 Intake & Output 12/18/23 12/19/23 12/19/23 18:59 06:59 18:59 Intake Total 500 Balance 500 Intake: Oral 500 Other: Voiding Method Toilet Toilet # Voids 1 - Labs CBC & Chem 7: 12/19/23 11:45 12/19/23 11:45 Labs: Abnormal Lab Results - Last 24 Hours (Table) 12/18/23 12/18/23 12/19/23 Range/Units 11:59 20:08 07:11 POC Glucose (mg/dL) 138 H 186 H 134 H (70-110) mg/dL Microbiology - Last 24 Hours (Table) 12/17/23 00:02 Blood Culture - Preliminary Blood 12/16/23 20:40 Blood Culture - Preliminary Blood
[2023-12-19 20:45] LABS: Glucose,Whole Blood 204 mg/dL (70-110)
[2023-12-19] MEDS: INSULIN DETEMIR (LEVEMIR) 100 UNIT/ML SYR SQ SCH (21:24)
[2023-12-20 07:04] LABS: Glucose,Whole Blood 95 mg/dL (70-110)
[2023-12-20 10:44] LABS: HCT 32.2 % (37.2-46.3); HGB 10.5 g/dL (12.0-15.0); MCH 29.9 pg (27.0-32.0); MCHC 32.6 g/dL (32.0-37.0); MCV 91.7 FL (80.0-97.0); Mean Platelet Volume 10.6 FL (9.5-12.2); NRBC Per 100 WBC 0 X 10*3/uL (0.00-0.01); Platelet Count 278 X 10*3/uL (140-440); RBC 3.51 X 10*6/uL (4.10-5.20); RDW 13.3 % (11.5-14.5); WBC 6.62 X 10*3/uL (4.50-10.00)
[2023-12-20 11:08] LABS: BUN/Creat Ratio 13.67 Ratio (12.00-20.00); Blood Urea Nitrogen 8.2 mg/dL (9.0-27.0); Calcium 8.5 mg/dL (8.7-10.3); Carbon Dioxide 24.5 mmol/L (21.6-31.8); Chloride 106 mmol/L (96-109); Glucose 111 mg/dL (70-110); Magnesium 2.1 mg/dL (1.5-2.4); Potassium 4.2 mmol/L (3.5-5.5); Sodium 141 mmol/L (135-145)
[2023-12-20] MEDS: VANCOMYCIN TROUGH DUE 1 EACH MISC MISCELLANE ONE (11:27)
[2023-12-20 11:33] LABS: African American GFR (CKD) >90 (>60 ml/min/1.73 sqM); Non-African American GFR(CKD) >90 (>60 ml/min/1.73 sqM)
[2023-12-20 12:11] LABS: Glucose,Whole Blood 153 mg/dL (70-110)
--- NOTE | 2023-12-20 15:54 | P.PN ---
Subjective Progress Note Date: 12/20/23 Principal diagnosis: Reason for follow-up is right foot cellulitis Patient is a 53-year-old female past medical history significant for diabetes mellitus presenting to the hospital for evaluation of increasing swelling and redness to the right foot area apparently the patient did have injury to the right foot from the tile with the patient did receive 2 laceration on the lateral aspect of the right foot, failing outpatient oral Keflex therapy. On today's evaluation that is 12/20/2023,the patient remains to be afebrile, patient is on room air not requiring supplemental oxygen and denies any shortness of breath no chest pain or cough.Patient denies having any nausea or vomiting, no abdominal pain and no diarrhea has been reported, denies pain to the right foot swelling redness minimal decrease. Patient white count is 6.62, creatinine 0.6 Vanco trough is 23.3 blood cultures pending Objective - Vital Signs Vital signs: Vital Signs Temp 97.8 F 12/20/23 12:11 Pulse 108 H 12/20/23 12:11 Resp 18 12/20/23 12:11 BP 169/91 12/20/23 12:11 Pulse Ox 100 12/20/23 12:11 FiO2 Intake & Output 12/19/23 12/20/23 12/20/23 18:59 06:59 18:59 Intake Total 1620 Balance 1620 Intake: Oral 1620 Other: Voiding Method Toilet Toilet # Voids 3 1 - Exam GENERAL DESCRIPTION: Middle-aged female lying in bed in no distress RESPIRATORY SYSTEM: Unlabored breathing , decreased breath sounds at bases HEART: S1 S2 regular rate and rhythm , ABDOMEN: Soft , no tenderness EXTREMITIES: Right foot erythema slightly decreased - Labs CBC & Chem 7: 12/20/23 07:12 12/20/23 10:50 Labs: Abnormal Lab Results - Last 24 Hours (Table) 12/19/23 12/19/23 12/19/23 Range/Units 11:45 17:22 20:43 RBC (4.10-5.20) X 10*6/uL Hgb (12.0-15.0) g/dL Hct (37.2-46.3) % BUN (9.0-27.0) mg/dL Glucose (70-110) mg/dL POC Glucose (mg/dL) 157 H 204 H (70-110) mg/dL Hemoglobin A1c (<=6.0) % Calcium (8.7-10.3) mg/dL C-Reactive Protein 3.9 H (<1.0) mg/dL 12/20/23 12/20/23 12/20/23 Range/Units 07:12 07:12 07:12 RBC 3.51 L (4.10-5.20) X 10*6/uL Hgb 10.5 L (12.0-15.0) g/dL Hct 32.2 L (37.2-46.3) % BUN 8.2 L (9.0-27.0) mg/dL Glucose 111 H (70-110) mg/dL POC Glucose (mg/dL) (70-110) mg/dL Hemoglobin A1c 6.3 H (<=6.0) % Calcium 8.5 L (8.7-10.3) mg/dL C-Reactive Protein (<1.0) mg/dL 12/20/23 Range/Units 12:10 RBC (4.10-5.20) X 10*6/uL Hgb (12.0-15.0) g/dL Hct (37.2-46.3) % BUN (9.0-27.0) mg/dL Glucose (70-110) mg/dL POC Glucose (mg/dL) 153 H (70-110) mg/dL Hemoglobin A1c (<=6.0) % Calcium (8.7-10.3) mg/dL C-Reactive Protein (<1.0) mg/dL Microbiology - Last 24 Hours (Table) 12/17/23 00:02 Blood Culture - Preliminary Blood 12/16/23 20:40 Blood Culture - Preliminary Blood Assessment and Plan (1) Diabetic infection of right foot Current Visit: Yes Status: Acute Code(s): E11.628 - TYPE 2 DIABETES MELLITUS WITH OTHER SKIN COMPLICATIONS; L08.9 - LOCAL INFECTION OF THE SKIN AND SUBCUTANEOUS TISSUE, UNSP SNOMED Code(s): 04629817 (2) Cellulitis of right foot Current Visit: Yes Status: Acute Code(s): L03.115 - CELLULITIS OF RIGHT LOWER LIMB SNOMED Code(s): 00639843436931667 (3) Failure of outpatient treatment Current Visit: Yes Status: Acute Code(s): Z78.9 - OTHER SPECIFIED HEALTH STATUS SNOMED Code(s): 979782270 Plan: 1patient presented hospital with worsening swelling and redness to the right foot in this patient who did have a injury to the right foot about 10 days before presentation the hospital developing small laceration with secondary cellulitis failing outpatient oral Keflex therapy 2-patient did have some clinical improvement as for his right foot cellulitis is concerned, continue the vancomycin and Unasyn for another 24 hours before transition to oral antibiotics Question concern answered Dictation was produced using [employer] dictation software. please excuse any grammatical, word or spelling errors. Time with Patient: Less than 30
[2023-12-20 17:10] LABS: Glucose,Whole Blood 180 mg/dL (70-110)
--- NOTE | 2023-12-20 18:03 | P.PN ---
Subjective Progress Note Date: 12/20/23 Hospital course: Patient is a very pleasant 53-year-old female with a past medical history of insulin-dependent diabetes mellitus type 2 with significant peripheral neuropathy in bilateral lower extremities and previous toe amputation. She presented to the emergency department on 12/17/2023 secondary to concerns of diabetic wound infection failing outpatient antibiotics. Upon arrival to the emergency department patient underwent evaluation. Vital signs upon arrival show blood pressure 179/79, heart rate 76, respiratory rate 16, temp 98.1 F, and SpO2 of 99% on room air. X-ray right foot negative for acute process. Labs completed and reviewed. CBC was unremarkable with WBC count of 9.4. BMP showing elevated chloride of 108 and glucose of 123. Lactic acid was 1.4. Liver profile showing transaminitis with AST of 44, ALT of 87, and alkaline phosphatase of 169. CRP was 6.3. Patient was started on IV antibiotics and admitted under our services for right lower extremity cellulitis. Consult placed to infectious disease. Blood cultures showing no growth to date. Physical exam: Patient seen and fully evaluated at bedside this morning. She had moderate improvement of swelling and erythema to right foot. She continues to deny having any pain or complaints at this time. Vital signs reviewed and stable. General: Nontoxic, no distress and appears stated age. Derm: Skin warm and dry, normal coloration for ethnicity. Patient with puncture/laceration to right lateral plantar region of foot surrounded by moderate edema and erythema extending upwards onto dorsal surface of right foot into ankle. Head: Atraumatic, normocephalic and symmetric. Eyes: EOMs intact, no lid lag, and anicteric sclera Mouth: no lip lesions, mucus membranes moist Cardiovascular: regular rate and rhythm with normal S1S2, no murmur, positive posterior tibial pulses bilaterally, and cap refill < 2 seconds. Lungs: Respirations even, regular, and unlabored on room air. Lungs CTA bilaterally, no rhonchi, no rales, no wheezing, and no accessory muscle usage. Abdominal: soft, nontender to palpation, no guarding, no appreciable organomegaly Ext: No gross muscle atrophy, no edema, no contractures. Movement intact. Patient with decreased sensation in bilateral feet. Neuro: Speech clear, face symmetrical and CN II-XII grossly intact with no noted focal neuro deficits Psych: Alert and oriented to person, place, time, and situation. Appropriate and pleasant affect. Assessment and Plan of Care: Diabetic foot infection with laceration and surrounding cellulitis Insulin-dependent diabetes mellitus with hyperglycemia with hemoglobin A1c of 6.3% Transaminitis, suspect reactive secondary to acute infection Diabetic neuropathy bilateral lower extremities -Continue IV antibiotics with vancomycin and Unasyn. -Close monitoring of vancomycin trough and renal function to monitor for any signs of vancomycin associated renal toxicity. -Infectious disease following, reviewed documentation in chart recommending continuation of IV antibiotics for an additional 24 hours prior to transition to oral antibiotics. -Hemoglobin A1c 6.3% -Continue Levemir 30 units nightly and patient placed on glycemic protocol with NovoLog sliding scale. -Continue Neurontin 300 mg twice daily and 600 mg nightly. Hypothyroidism Continue levothyroxine 200 mcg daily. Morbid obesity with BMI of 45.3 kg/m Recommend structured outpatient weight management program. Data reviewed: Morning labs reviewed. CBC showing stable normocytic anemia with hemoglobin of 10.5. BMP remains unremarkable with renal function showing BUN of 8.2, creatinine 0.6, GFR greater than 90. Blood glucose was elevated at 208 this morning. Magnesium normal findings at 1.9. Repeat CRP showing improvement from previous 6.3 down to 3.9 this morning. Vancomycin trough elevated at 23.3. Blood cultures showing no growth to date. Vital signs reviewed. Blood pressure 151/90, heart rate 65, respiratory rate 18, temp 98.0 F, and SpO2 of 99% on room air. CODE STATUS: Full code DVT prophylaxis: Lovenox Anticipated discharge date: Likely tomorrow Anticipated discharge place: Home Patient was seen independently by Nurse Pracitioner. This document was prepared using [employer] dictation software. Please allow for errors in huller operator, while rare they do occur Ti Rodríguez NP rendered care for this patient independently, reviewed the findings and plan as documented in the note above. I did not physically speak with or examine the patient on this date. . Objective - Vital Signs Vital signs: Vital Signs Temp 98 F 12/20/23 07:01 Pulse 65 12/20/23 07:01 Resp 18 12/20/23 07:01 BP 151/90 12/20/23 07:01 Pulse Ox 99 12/20/23 07:01 FiO2 Intake & Output 12/19/23 12/20/23 12/20/23 18:59 06:59 18:59 Intake Total 1620 Balance 1620 Intake: Oral 1620 Other: Voiding Method Toilet Toilet # Voids 3 - Labs CBC & Chem 7: 12/20/23 07:12 12/20/23 10:50 Labs: Abnormal Lab Results - Last 24 Hours (Table) 12/19/23 12/19/23 12/19/23 Range/Units 11:45 11:45 12:15 RBC 3.61 L (3.80-5.40) m/uL Hgb 11.0 L (11.4-16.0) gm/dL Hct 33.2 L (34.0-46.0) % Glucose 208 H (74-99) mg/dL POC Glucose (mg/dL) 198 H (70-110) mg/dL C-Reactive Protein 3.9 H (<1.0) mg/dL 12/19/23 12/19/23 Range/Units 17:22 20:43 RBC (3.80-5.40) m/uL Hgb (11.4-16.0) gm/dL Hct (34.0-46.0) % Glucose (74-99) mg/dL POC Glucose (mg/dL) 157 H 204 H (70-110) mg/dL C-Reactive Protein (<1.0) mg/dL Microbiology - Last 24 Hours (Table) 12/17/23 00:02 Blood Culture - Preliminary Blood 12/16/23 20:40 Blood Culture - Preliminary Blood
[2023-12-20 20:12] LABS: Glucose,Whole Blood 221 mg/dL (70-110)
[2023-12-21] MEDS: VANCOMYCIN 2,000 MG in SODIUM CHLORIDE 0.9% 500 ML 500 ML IVPB SCH (05:10)
[2023-12-21 06:24] LABS: African American GFR (CKD) >90 (>60 ml/min/1.73 sqM); Non-African American GFR(CKD) >90 (>60 ml/min/1.73 sqM)
[2023-12-21 07:00] LABS: Glucose,Whole Blood 121 mg/dL (70-110)
[2023-12-21 08:26] VITALS: BP 149/84; RESP 16; TEMP 97.8
[2023-12-21 11:14] VITALS: PULSE 66
[2023-12-21 11:56] LABS: Glucose,Whole Blood 177 mg/dL (70-110)
--- NOTE | 2023-12-21 12:27 | P.DS ---
Providers Date of admission: 12/16/23 22:09 Expected date of discharge: 12/21/23 Attending physician: Case Phipps MD Consults: 12/17/23 09:13 Consult Physician Routine Consulting Provider: Joe Garber Consult Reason/Comments: cellulitis Do you want consulting provider notified?: Yes Primary care physician: [place] Hospital Course: Discharge Diagnosis: Diabetic foot infection with laceration and surrounding cellulitis Insulin-dependent diabetes mellitus with hyperglycemia with hemoglobin A1c of 6.3% Transaminitis, suspect reactive secondary to acute infection Diabetic neuropathy bilateral lower extremities Hypothyroidism Morbid obesity with BMI of 45.3 kg/m Hospital Course: Patient is a very pleasant 53-year-old female with a past medical history of insulin-dependent diabetes mellitus type 2 with significant peripheral neuropathy in bilateral lower extremities and previous toe amputation. She presented to the emergency department on 12/17/2023 secondary to concerns of diabetic wound infection failing outpatient antibiotics. Upon arrival to the emergency department patient underwent evaluation. Vital signs upon arrival sh ow blood pressure 179/79, heart rate 76, respiratory rate 16, temp 98.1 F, and SpO2 of 99% on room air. X-ray right foot negative for acute process. Labs completed and reviewed. CBC was unremarkable with WBC count of 9.4. BMP showing elevated chloride of 108 and glucose of 123. Lactic acid was 1.4. Liver profile showing transaminitis with AST of 44, ALT of 87, and alkaline phosphatase of 169. CRP was 6.3. Patient was started on IV antibiotics and admitted under our services for right lower extremity cellulitis. Consult placed to infectious disease. Blood cultures revealed no growth. Patient underwent 5 night hospitalization with IV antibiotics with vancomycin and Unasyn. Patient having moderate improvement of swelling and erythema. She was cleared by infectious disease for discharge home on Augmentin 875/125 mg tablets every 12 hours and doxycycline 100 mg every 12 hours for an additional 10 days. Medically, patient stable for discharge at this time. Patient to follow-up outpatient with her PCP in 1 to 2 days, party coordinator next week as discussed and infectious disease physician. Physical exam: Vital signs reviewed and stable. General: Nontoxic, no distress and appears stated age. Derm: Skin warm and dry, normal coloration for ethnicity. Patient with puncture/laceration to right lateral plantar region of foot surrounded by moderate edema and erythema extending upwards onto dorsal surface of right foot into ankle. Head: Atraumatic, normocephalic and symmetric. Eyes: EOMs intact, no lid lag, and anicteric sclera Mouth: no lip lesions, mucus membranes moist Cardiovascular: regular rate and rhythm with normal S1S2, no murmur, positive posterior tibial pulses bilaterally, and cap refill < 2 seconds. Lungs: Respirations even, regular, and unlabored on room air. Lungs CTA bilaterally, no rhonchi, no rales, no wheezing, and no accessory muscle usage. Abdominal: soft, nontender to palpation, no guarding, no appreciable organomegaly Ext: No gross muscle atrophy, no edema, no contractures. Movement intact. Patient with decreased sensation in bilateral feet. Neuro: Speech clear, face symmetrical and CN II-XII grossly intact with no noted focal neuro deficits Psych: Alert and oriented to person, place, time, and situation. Appropriate and pleasant affect. A total of 31 minutes of time were spent preparing this complex discharge summary. Pt was discharged on 12/21/2023 at 12:26 PM. Patient was seen independently by Nurse Practitioner. This document was prepared using [employer] dictation software. Please allow for errors in subway conductor while rare they do occur. Ti Rodríguez NP rendered care for this patient independently, reviewed the findings and plan as documented in the note above. Patient Condition at Discharge: Stable Plan - Discharge Summary Discharge Rx Participant: No New Discharge Prescriptions: New Doxycycline [Vibramycin] 100 mg PO BID 10 Days #20 capsule Amoxic-Pot Clav 875-125Mg [Augmentin 875-125] 1 tab PO BID 10 Days #20 tab L.acidoph,Paracasei, B.lactis [Probiotic] 1 each PO DAILY #20 capsule Continue Gabapentin [Neurontin] 300 mg PO BID@0900,1500 Pioglitazone [Actos] 15 mg PO DAILY Insulin Glargine-Yfgn [Semglee (Yfgn) Pen] 30 unit SQ HS Gabapentin [Neurontin] 600 mg PO HS Tirzepatide [Mounjaro] 12.5 mg SQ WE@2100 Levothyroxine Sodium [Synthroid] 200 mcg PO DAILY Discontinued Amoxic-Pot Clav 500-125 mg [Augmentin 500-125 mg] 1 tab PO TID Discharge Medication List Gabapentin [Neurontin] 300 mg PO BID@0900,1500 12/17/23 [History] Gabapentin [Neurontin] 600 mg PO HS 12/17/23 [History] Insulin Glargine-Yfgn [Semglee (Yfgn) Pen] 30 unit SQ HS 12/17/23 [History] Levothyroxine Sodium [Synthroid] 200 mcg PO DAILY 12/17/23 [History] Pioglitazone [Actos] 15 mg PO DAILY 12/17/23 [History] Tirzepatide [Mounjaro] 12.5 mg SQ WE@2100 12/17/23 [History] Amoxic-Pot Clav 875-125Mg [Augmentin 875-125] 1 tab PO BID 10 Days #20 tab 12/21/23 [Rx] Doxycycline [Vibramycin] 100 mg PO BID 10 Days #20 capsule 12/21/23 [Rx] L.acidoph,Paracasei, B.lactis [Probiotic] 1 each PO DAILY #20 capsule 12/21/23 [Rx] Follow up Appointment(s)/Referral(s): Jose Luis Sanches DO [Primary Care Provider] - 1-2 days Joe Garber MD [STAFF PHYSICIAN] - 1 Week Patient Instructions/Handouts: Cellulitis (GEN), Acute Wounds (DC) Activity/Diet/Wound Care/Special Instructions: Activity: As tolerated. Take breaks as needed. Diet: Heart healthy and carb consistent diet. Avoid salts, or foods with hidden salts such as canned or boxed foods and frozen dinners. Extra salt makes your heart work harder and traps the fluid in your body for longer. Special Instructions: Take all of your medications as directed completing the entire course of antibiotic and remember to keep all of your doctor's appointments and follow-up as needed. You will need to follow-up with your party coordinator, your PCP, and infectious disease doctor. Also as we discussed at bedside with you and your it is of utmost importance for your hobby to follow all of your directions being your " personal carer" for the next 48 hours! Wishing you nothing but happiness and health! Thank you for allowing us to participate in your care, it was truly a pleasure having you for our patient!!! . Discharge Disposition: HOME SELF-CARE
--- NOTE | 2023-12-21 21:41 | P.PN ---
Subjective Progress Note Date: 12/21/23 Principal diagnosis: Reason for follow-up is right foot cellulitis Patient is a 53-year-old female past medical history significant for diabetes mellitus presenting to the hospital for evaluation of increasing swelling and redness to the right foot area apparently the patient did have injury to the right foot from the tile with the patient did receive 2 laceration on the lateral aspect of the right foot, failing outpatient oral Keflex therapy. On today's evaluation that is 12/21/2023, the patient continues to be afebrile, the patient is on room air and breathing comfortably, the Pt denies having any chest pain or cough, the patient denies having any abdominal pain no vomiting or any diarrhea denies pain to the right foot area redness has decreased and no drainage. Patient did have a creatinine 0.53 blood culture has been negative Objective - Vital Signs Vital signs: Vital Signs Temp 97.8 F 12/21/23 07:34 Pulse 68 12/21/23 07:34 Resp 16 12/21/23 07:34 BP 149/84 12/21/23 07:34 Pulse Ox 98 12/21/23 07:34 FiO2 Intake & Output 12/20/23 12/21/23 12/21/23 18:59 06:59 18:59 Intake Total 200 Balance 200 Intake: Oral 200 Other: Voiding Method Toilet # Voids 2 1 # Bowel Movements 1 - Exam GENERAL DESCRIPTION: Middle-aged female lying in bed in no distress RESPIRATORY SYSTEM: Unlabored breathing , decreased breath sounds at bases HEART: S1 S2 regular rate and rhythm , ABDOMEN: Soft , no tenderness EXTREMITIES: Right foot erythema slightly decreased - Labs CBC & Chem 7: 12/20/23 07:12 12/21/23 05:34 Labs: Abnormal Lab Results - Last 24 Hours (Table) 12/20/23 12/20/23 12/20/23 Range/Units 07:12 07:12 07:12 RBC 3.51 L (4.10-5.20) X 10*6/uL Hgb 10.5 L (12.0-15.0) g/dL Hct 32.2 L (37.2-46.3) % BUN 8.2 L (9.0-27.0) mg/dL Glucose 111 H (70-110) mg/dL POC Glucose (mg/dL) (70-110) mg/dL Hemoglobin A1c 6.3 H (<=6.0) % Calcium 8.5 L (8.7-10.3) mg/dL 12/20/23 12/20/23 12/20/23 Range/Units 12:10 17:08 20:10 RBC (4.10-5.20) X 10*6/uL Hgb (12.0-15.0) g/dL Hct (37.2-46.3) % BUN (9.0-27.0) mg/dL Glucose (70-110) mg/dL POC Glucose (mg/dL) 153 H 180 H 221 H (70-110) mg/dL Hemoglobin A1c (<=6.0) % Calcium (8.7-10.3) mg/dL 12/21/23 Range/Units 06:59 RBC (4.10-5.20) X 10*6/uL Hgb (12.0-15.0) g/dL Hct (37.2-46.3) % BUN (9.0-27.0) mg/dL Glucose (70-110) mg/dL POC Glucose (mg/dL) 121 H (70-110) mg/dL Hemoglobin A1c (<=6.0) % Calcium (8.7-10.3) mg/dL Assessment and Plan (1) Diabetic infection of right foot Status: Acute Code(s): E11.628 - TYPE 2 DIABETES MELLITUS WITH OTHER SKIN COMPLICATIONS; L08.9 - LOCAL INFECTION OF THE SKIN AND SUBCUTANEOUS TISSUE, UNSP SNOMED Code(s): 89398055 (2) Cellulitis of right foot Status: Acute Code(s): L03.115 - CELLULITIS OF RIGHT LOWER LIMB SNOMED Code(s): 35413640414276413 (3) Failure of outpatient treatment Status: Acute Code(s): Z78.9 - OTHER SPECIFIED HEALTH STATUS SNOMED Code(s): 684211934 Plan: 1patient presented hospital with worsening swelling and redness to the right foot in this patient who did have a injury to the right foot about 10 days before presentation the hospital developing small laceration with secondary cellulitis failing outpatient oral Keflex therapy 2-patient did have some clinical improvement as for right foot cellulitis is concerned, we will finish therapy with oral Augmentin and doxycycline x 10 days discussed with the HOME CARE SCHEDULER for admitting team working on discharge Dictation was produced using [employer] dictation software. please excuse any grammatical, word or spelling errors. Time with Patient: Less than 30
== END 2023-12-21 13:41 | disposition home or self-care (01) | DRG 638 ==
LOC: EC 18:09 → 5NMEDONC 22:09 → 1SOBS 12-17 10:27 → 5NMEDONC 12-18 10:09
PROVIDERS: ADMIT Internal Medicine; ATTEND Internal Medicine
DX: E11.628 Type 2 diabetes mellitus with other skin complications (principal); L03.115 Cellulitis of right lower limb; Z68.42 Body mass index [BMI] 45.0-49.9, adult; E11.40 Type 2 diabetes mellitus with diabetic neuropathy, unspecified; S91.311A Laceration without foreign body, right foot, initial encounter; R74.01 Elevation of levels of liver transaminase levels; E03.9 Hypothyroidism, unspecified; E11.65 Type 2 diabetes mellitus with hyperglycemia; D53.9 Nutritional anemia, unspecified; Z79.899 Other long term (current) drug therapy; E11.42 Type 2 diabetes mellitus with diabetic polyneuropathy; E66.01 Morbid (severe) obesity due to excess calories; E28.2 Polycystic ovarian syndrome; Z89.429 Acquired absence of other toe(s), unspecified side; Z79.890 Hormone replacement therapy; Z79.4 Long term (current) use of insulin; Z88.8 Allergy status to other drugs, medicaments and biological substances; Z71.3 Dietary counseling and surveillance
CPT/HCPCS: 36415; 80048; 80053; 80202; 82565; 83036; 83605; 83690; 83735; 84100; 85025; 85027; 86140; 87040

== ENCOUNTER → 2024-01-15 | Outpatient (CLI) | payer BC ==
--- NOTE | 2024-01-15 17:30 | XR ---
EXAMINATION TYPE: XR foot complete RT DATE OF EXAM: 01/15/2024 4:34 PM CLINICAL INDICATION:Female, 53 years old with history of M79.671 PAIN IN RIGHT FOOT; [facility] COMPARISON: 12/16/2023. TECHNIQUE: XR foot complete RT examined in the AP, oblique, and lateral projections. FINDINGS/IMPRESSION: 1. Soft tissue swelling around the fifth digit metatarsal head with osseous erosion suggested of the fifth metatarsal head and the base of the fifth metatarsal proximal phalanx concerning for osteomyel itis. Consider MRI without contrast. 2. Calcaneal plantar spurring and Achilles enthesophyte formation.
== END | disposition home or self-care (01) ==
LOC: RADXRMAIN 16:24
PROVIDERS: ATTEND Internal Medicine Infectious Disease
DX: M77.31 Calcaneal spur, right foot (principal); M86.8X7 Other osteomyelitis, ankle and foot; M79.89 Other specified soft tissue disorders

== ENCOUNTER → 2024-02-20 | Outpatient (CLI) | payer BC ==
--- NOTE | 2024-02-22 14:24 | XR ---
EXAMINATION TYPE: XR abdomen 1V DATE OF EXAM: 02/20/2024 COMPARISON: None INDICATION: Cramping no bowel movement TECHNIQUE: Single view abdomen FINDINGS: There is a normal bowel gas pattern. Mild fecal debris is evident. No significant fecal retention or fecal impaction identified. No mass effect is evident. Psoas margins are normal. No organomegaly is present. IMPRESSION: 1. Unremarkable Abdomen
== END | disposition home or self-care (01) ==
LOC: RADXRYALE 10:50
PROVIDERS: ATTEND Physician Assistant
DX: R10.30 Lower abdominal pain, unspecified (principal)
CPT/HCPCS: 74018